=== PATIENT | female | born 1960 | race Caucasian/White ===

== ENCOUNTER 2018-02-05 06:42 | Inpatient (IN) | payer OTHER, SELFPAY ==
[2018-01-20 08:38] VITALS: BMI 40.4
[2018-01-22 08:10] VITALS: BMI 40.4
[2018-02-05] VITALS (19 sets, daily range): BP systolic 106–140; BP diastolic 57–78; PULSE 60–78; RESP 12–18; TEMP 36.3–37.1; O2SAT 93–99; BMI 40.4
--- NOTE | 2018-02-05 | DI.RAD.S_ITS ---
PROCEDURE: XR KNEE RT 1TO2V INDICATIONS: RIGHT TOTAL KNEE TECHNIQUE: 2 view(s) of the knee acquired. COMPARISON: None. FINDINGS: Bones: Patient is status post knee joint arthroplasty. Hardware components are in expected positions. Visualized bony structures are intact. Soft tissues: Overlying postoperative changes are noted. IMPRESSION: Status post knee arthroplasty as above. Dictated by: Shelby Mendieta M.D. on 02/05/2018 at 11:18 Approved by: Shelby Mendieta M.D. on 02/05/2018 at 11:18
[2018-02-05] MEDS: LACTATED RINGERS 1,000 ML 42 ML IV ×2 (07:45→09:47)
[2018-02-05] MEDS: VANCOMYCIN 1,000 MG/200 ML FROZ.PIGGY 200 MG IV (07:47)
[2018-02-05] MEDS: ACETAMINOPHEN 325 MG TABLET 975 MG PO ×3 (07:50→20:14)
[2018-02-05] MEDS: PREGABALIN 75 MG CAPSULE PO (07:51)
[2018-02-05] MEDS: MELOXICAM 7.5 MG TABLET 15 MG PO (08:01)
[2018-02-05] MEDS: MIDAZOLAM 2 MG/2 ML VIAL IV (08:15)
[2018-02-05] MEDS: fentaNYL 100 MCG/2 ML INJ IV (08:17)
--- NOTE | 2018-02-05 08:32 | PM.PREOP ---
Pre-operative Note Interval Note Pre-op Check: Yes History & Physical Reviewed by Physician and Yes Exam Performed Changes: No
--- NOTE | 2018-02-05 08:32 | PM.OP.1 ---
Operative Date/Time/Diagnoses Date of procedure: 02/05/18 Time of procedure: 08:56 Pre-op diagnosis: right knee OA Post-op diagnosis: same Procedure & Clinicians Procedure: right total knee Same procedure as scheduled: Yes Indications: The patient has had progressively worsening right knee pain with radiographic changes consistent with arthritis. Non-operative management has failed and the patient has requested total knee replacement. The risks, benefits and alternatives to surgery were discussed with the patient prior to proceeding. Risks discussed included, but were not limited to, failure to relieve pain, stiffness, infection, nerve damage, deep venous thrombosis, pulmonary embolism, stroke, coma, heart attack, permanent paralysis and , as well as the potential need for eventual revision of the prosthetic. Surgeon: Rhonda Arroyo [employer] Science Teacher: Christopher Russ Anesthesia Type: Spinal Operative Notes Findings: Severe right knee OA Closure Type: primary Specimen(s): none sent Implants & Drains: Arroyo and Nephew Jayden BCS2 femur 4, tibia 2, poly 12, patella 32x9 Applied: drain(s) Estimated Blood Loss (mL): 200 Blood products transfused: none Tourniquet time (min): 61 Procedure in detail: The patient was seen in the pre-operative area, where the patient identified the right knee as the operative site and this was marked with my initials. The patient received pre-operative antibiotics, and was taken to the operating room and placed on the operative table in the supine position. After satisfactory anesthesia, a multimedia author out was performed. The right leg was encircled with a tourniquet about the proximal thigh, and the leg was prepared from the toes to the tourniquet with ChloroPrep in the usual fashion and draped through sterile drapes. The leg was elevated and exsanguinated with Eschmark bandage and the tourniquet inflated to [250] mmHg pressure. The knee was approached through an approximately 18 cm incision centered over the patella and carried into the knee through a medial parapatellar arthrotomy. Portion of the medial and lateral meniscus was resected. Soft tissue was carefully mobilized around the patella the patella was measured with a caliper. Bone was resected from the patella and the patellar height was reconstituted with up an appropriate sized patellar component. A cover was then placed on the patella. A small amount of additional medial and lateral meniscus was resected. The visionare guide fit well to the distal femur. It looked like an appropriate distal femoral cut and the cut was made without difficulty. The rotation was assessed and the appropriate size femoral guide was placed on the distal femur and finishing cuts were made. There was no evidence of notching. The anterior, posterior and chamfer cuts were then made. The posterior osteophytes and soft tissues were then removed. The posterior capsule was injected with part of a mixture of 60 ml 0.25% Marcaine mixed with 20 ml Exparel for post operative pain control. The remainder of this mixture was injected into the capsule and subcutaneous tissues during cement curing. The tibia was prepared and the visionaire guide fit well to the distal tibia. The rotation was assessed. The patient was placed in extension residual medial and lateral meniscus as well as any residual bone was carefully resected. [No] additional tibia was resected. Hemostasis was achieved especially posteriorly. Additional local was injected into the posterior capsule. The extension gap was assessed and additional releases for gap balancing were performed as necessary. It was checked with the gap pneumatic tube fitter. The femoral component trial was placed and the notch was finished. Trial tibial and femoral components were then placed and the knee placed through a range of motion. Range of motion was [0-130], with good stability throughout the range. The trials were then removed, and the tibia was finished. The bone was prepared with pulsatile lavage, and dried with a sponge. Cement was applied and the final prosthetics placed. Excess cement was removed during and after cement curing. A brief Betadine soak was performed. After confirming there was no extruded cement posteriorly, the final tibial insert was placed. The knee was copiously irrigated and the tourniquet deflated. Hemostasis was obtained with the [Aquamantys system]. A drain was placed and brought out superolaterally. The capsule was closed with interrupted # 1 black braided suture. The subcutaneous layer was closed with barbed sutures, and the skin with a running 3-0 V-Lock suture and Surgical glue. An Aquacel Ag dressing was applied and the patient was taken to recovery having tolerated the procedure well. Complications: none Condition: stable Disposition: Acute Care Plan for aftercare: The patient will be maintained on a standard total knee replacement protocol with weight bearing as tolerated. The patient will receive Aspirin and sequential compression devices for DVT prophylaxis. The patient will be discharged home when safe for the home environment.
--- NOTE | 2018-02-05 08:32 | SUR.PREOP ---
Block start time 0815 . Monitoring initiated and maintained throughout procedure. Oxygen and medications given per anesthesiologist instructions. Patient remained stable throughout procedure, no adverse reactions noted. Block end time 825. PT REMAINED STABLE AND TALKING TO RN UNTIL TRANSPORTED IN THE OR. PT LEFT PRE OP AREA IN STABLE CONDITION.
--- NOTE | 2018-02-05 08:35 | P.OP_ITS ---
Operative Date/Time/Diagnoses Date of procedure: 02/05/18 Time of procedure: 08:56 Pre-op diagnosis: right knee OA Post-op diagnosis: same Procedure & Clinicians Procedure: right total knee Same procedure as scheduled: Yes Indications: The patient has had progressively worsening right knee pain with radiographic changes consistent with arthritis. Non-operative management has failed and the patient has requested total knee replacement. The risks, benefits and alternatives to surgery were discussed with the patient prior to proceeding. Risks discussed included, but were not limited to, failure to relieve pain, stiffness, infection, nerve damage, deep venous thrombosis, pulmonary embolism, stroke, coma, heart attack, permanent paralysis and , as well as the potential need for eventual revision of the prosthetic. Surgeon: Rhonda Arroyo Video Game Creator: Christopher Russ Anesthesia Type: Spinal Operative Notes Findings: Severe right knee OA Closure Type: primary Specimen(s): none sent Implants & Drains: Arroyo and Nephew Jayden BCS2 femur 4, tibia 2, poly 12, patella 32x9 Applied: drain(s) Estimated Blood Loss (mL): 200 Blood products transfused: none Tourniquet time (min): 61 Procedure in detail: The patient was seen in the pre-operative area, where the patient identified the right knee as the operative site and this was marked with my initials. The patient received pre-operative antibiotics, and was taken to the operating room and placed on the operative table in the supine position. After satisfactory anesthesia, a multimedia instructional designer out was performed. The right leg was encircled with a tourniquet about the proximal thigh, and the leg was prepared from the toes to the tourniquet with ChloroPrep in the usual fashion and draped through sterile drapes. The leg was elevated and exsanguinated with Eschmark bandage and the tourniquet inflated to [250] mmHg pressure. The knee was approached through an approximately 18 cm incision centered over the patella and carried into the knee through a medial parapatellar arthrotomy. Portion of the medial and lateral meniscus was resected. Soft tissue was carefully mobilized around the patella the patella was measured with a caliper. Bone was resected from the patella and the patellar height was reconstituted with up an appropriate sized patellar component. A cover was then placed on the patella. A small amount of additional medial and lateral meniscus was resected. The visionare guide fit well to the distal femur. It looked like an appropriate distal femoral cut and the cut was made without difficulty. The rotation was assessed and the appropriate size femoral guide was placed on the distal femur and finishing cuts were made. There was no evidence of notching. The anterior, posterior and chamfer cuts were then made. The posterior osteophytes and soft tissues were then removed. The posterior capsule was injected with part of a mixture of 60 ml 0.25% Marcaine mixed with 20 ml Exparel for post operative pain control. The remainder of this mixture was injected into the capsule and subcutaneous tissues during cement curing. The tibia was prepared and the visionaire guide fit well to the distal tibia. The rotation was assessed. The patient was placed in extension residual medial and lateral meniscus as well as any residual bone was carefully resected. [No] additional tibia was resected. Hemostasis was achieved especially posteriorly. Additional local was injected into the posterior capsule. The extension gap was assessed and additional releases for gap balancing were performed as necessary. It was checked with the gap graphite disk assembler. The femoral component trial was placed and the notch was finished. Trial tibial and femoral components were then placed and the knee placed through a range of motion. Range of motion was [0-130 ], with good stability throughout the range. The trials were then removed, and the tibia was finished. The bone was prepared with pulsatile lavage, and dried with a sponge. Cement was applied and the final prosthetics placed. Excess cement was removed during and after cement curing. A brief Betadine soak was performed. After confirming there was no extruded cement posteriorly, the final tibial insert was placed. The knee was copiously irrigated and the tourniquet deflated. Hemostasis was obtained with the [Aquamantys system]. A drain was placed and brought out superolaterally. The capsule was closed with interrupted # 1 black braided suture. The subcutaneous layer was closed with barbed sutures, and the skin with a running 3 -0 V-Lock suture and Surgical glue. An Aquacel Ag dressing was applied and the patient was taken to recovery having tolerated the procedure well. Complications: none Condition: stable Disposition: Acute Care Plan for aftercare: The patient will be maintained on a standard total knee replacement protocol with weight bearing as tolerated. The patient will receive Aspirin and sequential compression devices for DVT prophylaxis. The patient will be discharged home when safe for the home environment.
[2018-02-05] MEDS: CEFAZOLIN 2 GM/100 ML FROZ.PIGGY IV ×2 (08:47→16:41)
[2018-02-05] MEDS: TRANEXAMIC ACID 1,000 MG VIAL 1000 MG IV ×2 (09:06→10:16)
--- NOTE | 2018-02-05 09:20 | SUR.OPER ---
Supine on padded OR bed. Pillow under head, arms secured on padded armboards <90 degree abduction. Safety belt across torso. Non-operative leg secured with tape over blanket over lower leg. Operative leg secured in DeMayo/Alfredo positioner. Foam padded brace at thigh of operative leg.
[2018-02-05] MEDS: BUPIVACAINE 0.25% W/ EPI VIAL 60 ML INJ (09:32)
[2018-02-05] MEDS: BUPIVACAINE LIPOSOME 266 MG/20 ML VIAL INJ (09:33)
[2018-02-05] MEDS: POVIDONE-IODINE 15 ML, SODIUM CHLORIDE 0.9% 250 ML TOP (09:37)
[2018-02-05] MEDS: LACTATED RINGERS 1,000 ML 125 ML IV ×2 (12:29→21:44)
[2018-02-05] MEDS: ALBUTEROL 2.5 MG/3 ML NEB (ADULT) INH (14:15)
--- NOTE | 2018-02-05 14:47 | PT.IIE ---
Current Diagnoses Unilateral primary osteoarthritis, right knee (02/05/18) Presence of left artificial knee joint (02/05/18) Surgery Performed Operation Date: 02/05/18 08:45 Actual Procedures p Total Knee Arthroplasty(Right) - Rhonda Arroyo MD Surgical History (Last Updated 01/20/18 @ 09:28 by Janee Muniz, RN) H/O: (Acute) History of D&C (Acute) History of bladder surgery (Acute) History of total abdominal hysterectomy (Acute) Hx laparoscopic cholecystectomy (Acute) Status post left partial knee replacement (Acute) Medical History (Last Updated 01/22/18 @ 08:28 by Janee Muniz, RN) Allergic conjunctivitis, bilateral (Acute) Anemia (Acute) Asthma (Acute) Bruises easily (Acute) Chronic left hip pain (Acute) Constipation (Acute) Cough (Acute) Dizziness (Acute) Esophagitis (Acute) Familial hypercholesterolemia (Acute) Fatigue (Acute) GERD (gastroesophageal reflux disease) (Acute) Hearing loss (Acute) History of UTI (Acute) History of broken finger (Acute) History of depression (Acute) History of migraine (Acute) History of nephrolithiasis (Acute) History of urticaria (Acute) Hypercalciuria (Acute) Hypertension (Acute) Hypocitraturia (Acute) Hypothyroidism (Acute) Impaired fasting glucose (Acute) Intermittent lightheadedness (Acute) Moderate persistent asthma without complication (Acute) Obesity due to excess calories without serious comorbidity (Acute) Primary osteoarthritis of right knee (Acute) Physical Therapy Inpatient Evaluation/Re-Eval M1 PT/OT-IP Prior Functional Status Start: 02/05/18 15:50 Freq: NEEDED Status: Active Protocol: Document 02/05/18 14:47 MDD (Rec: 02/05/18 16:04 MDD [id number]) Medical Review Prior Functional Status Medical History Reviewed Yes Communication nml Mobility and Gait mod independent with FWW Activities of Daily Living and IADL's independent Social History Household Members spouse children Living Arrangements House Number of Floors (Floors) One Floor Number of Stairs To Enter/Railing? 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 She is off for the summer. Lives with her and two adult daughters. Her daughter Tracy is planning on being available at the house to assist during the next week or two. M2 PT-IP Current Condition Start: 02/05/18 15:50 Freq: NEEDED Status: Active Protocol: Document 02/05/18 14:47 MDD (Rec: 02/05/18 16:04 MDD [id number]) Physical Therapy Current Condition Current Condition Evaluation Date 02/05/18 Treatment Diagnosis s/p R TKA Onset Date 02/05/18 Weight Bearing Status Weight Bearing Status Weight Bear as Tolerated M3 PT-IP Subjective Start: 02/05/18 15:50 Freq: NEEDED Status: Active Protocol: Document 02/05/18 14:47 MDD (Rec: 02/05/18 16:04 MDD [id number]) Subjective Physical Therapy Visit Type Type Initial Evaluation Visit Start Time 13:43 Visit Stop Time 14:47 Total Visit Minutes 56 Notes Left room from 14:19 to 14:27 to allow patient to recieve nebulizer treatment. She had an asthma attack with ambulation into the restroom. Pt was able to make it to the commode. PT and PEA VINER MECHANIC were unable to find her inhaler, so respiratory therapy was called. Number of PROFESSOR IN FAMILY STUDIES Visits 0 Physical Therapy Visit Comments Patient Comments Reports she would like to go to the restroom if she can. Therapy Pain Assessment Pain When Pain Assessed At Rest Pain Present Pain Present Pain Reported Location Right Leg Intensity 4 Scale Used Numeric (1 - 10) Description Aching Pain Behaviors Facial Grimacing Moaning Pain Management Techniques Apply Cold M4 PT-IP Mobility and Gait Start: 02/05/18 15:50 Freq: NEEDED Status: Active Protocol: Document 02/05/18 14:47 MDD (Rec: 02/05/18 16:04 MDD [id number]) PT-Bed Mobility Assessment Supine to Sit Supine to Sit Minimal Assistance Head of Bed Elevated Sit to Supine Sit to Supine Minimal Assistance Head of Bed Elevated Scooting Scooting to Edge of Bed Independent PT-Transfer Assessment Sit to and From Stand Sit to and from Stand Contact Guard Assistance Equipment Transfer Assistive Device Gait Belt Front Wheeled Walker Transfers Transfer Destination Chair Bedside Commode Transfer Technique Stand Step Pivot Transfer Ability Level of Assist Contact Guard Assistance Gait Assessment Gait Gait Assistance Required: Contact Guard Assist Distance (Feet) (feet) 20 Assistive Devices Assistive Device Gait Belt Front Wheeled Walker Gait Deviations General Gait Pattern Antalgic Decreased Stride Length Flexed Trunk Step-to Gait Comments Gait Comments Very antalgic gait with heavy reliance on UE's. PT-Balance Assessment Sitting Balance and Reactions Static Sitting Balance Ability Normal Dynamic Sitting Balance Ability Normal Standing Balance and Reactions Static Standing Balance Ability Good Dynamic Standing Balance Ability Good M5 PT-IP Objective Assessments Start: 02/05/18 15:50 Freq: NEEDED Status: Active Protocol: Document 02/05/18 14:47 MDD (Rec: 02/05/18 16:04 [facility] [id number]) Orientation Orientation/Cognition Level of Alertness Alert Orientation Name Age Birthday Month Date Year Day of Week Place Situation Language Function Ability No Deficits Noted Safety Awareness Understands Safety Issues Memory Description No Deficits Noted Gross Range of Motion Lower Extremity ROM Assessment Within Functional Limits Strength Lower Extremity Strength Assessment Within Functional Limits Comments Strength Comments Able to actively dorsiflex and plantarflex R foot with resistence. Sensation Assessment Sensation Gross Sensation Right LE Impaired Light Touch Impaired Comments Sensation Comments Pt reports plantar surface of R foot feels tingly. Otherwise R LE light touch sensation intact. M6 PT-IP Treatment Start: 02/05/18 15:50 Freq: NEEDED Status: Active Protocol: Document 02/05/18 14:47 MDD (Rec: 02/05/18 16:04 [facility] [id number]) Physical Therapy Treatment Education Education Provided Precautions Weight Bearing Status Post-Op Packet Safety Other Treatments Other Treatment Performed Pt ambulated to bedside commode in bathroom, rested and ambulated to recliner (5 feet). Recieved her nebulizer treatment and ambulated back to bed. M7 PT-IP Assessment and Plan Start: 02/05/18 15:50 Freq: NEEDED Status: Active Protocol: Document 02/05/18 14:47 MDD (Rec: 02/05/18 16:04 [facility] [id number]) PT Summary Assessment and Plan Potential Rehabilitation Potential Good Status of Condition at Evaluation Evolving Summary Impairments Pain ROM Bed Mobility Transfers Gait Activity Tolerance Progress Towards Goals Progressing Toward Goals Slow Progress due to Medical Issues Assessment Summary Pt required min A to move R LE during bed mobility due to pain. Was able to stand with CGA and ambulate short distances. Due to acute asthma attack during gait, suggest she use bedside commode overnight. Will benefit from continued inpatient rehab to ensure safe d/c home. Goals Bed Mobility Goal Independent Transfer Goal Independent Gait Goal Independent Gait Distance 50 feet on level ground with FWW Other Goals Ascend/descend 2 steps with no railings with SBA. Days to Meet Goals 2 Frequency of Treatment Frequency Of Treatment Twice a Day Treatment Plan Physical Therapy Treatment Plan Bed Mobility Training Transfer Training Gait Training Therapeutic Exercise Post Op Education Other Recommendations and Next Treatment increase gait tolerance/ Focus distance, ensure pain meds provided prior to treatment. Recommendations To Nursing Amount of Assist Needed 1 Person Assist Discharge Recommendations PT Discharge Recommendations Home Home with Assistance
[2018-02-05] MEDS: DOCUSATE 100 MG CAPSULE PO (20:14)
[2018-02-05] MEDS: MOMETASONE FORMOTEROL 2 EACH INHALATION (20:14)
--- NOTE | 2018-02-05 23:41 | PC.NURSE ---
Addendum entered by Tierra Troy R.N. 02/06/18 06:04: Given Oxycodone earlier for complaint of 4/10 pain in right knee/thigh and was able to sleep well most of night. Now states pain is 3/10 and exacerbated by movement; still in right knee/thigh but also behind right knee. Medicated with Oxycodone and ice pack applied. No new drainage noted on dressing. Original Note: Patient is alert and oriented. Breath sounds diminished at bases but CTA with RA sat of 99%. HRR. Denies nausea. BT hypoactive and abdomen is soft; states she has passed some flatus. Up to bathroom with walker and 1 assist and voiding without difficulty; does report some chronic stress incontinence. Is able to turn self in bed. Aquacel dressing to right knee is intact with small spots sanguinous drainage outlined. Hemovac intact and compressed. States pain is minimal at 1/10; ice pack applied for comfort. Some swelling present in right knee. CMS is intact. Wearing bilateral calf SCD's. Reports several falls in past 2 weeks so is at high risk for falls so bed alarm is activated.
[2018-02-06] MEDS: CEFAZOLIN 2 GM/100 ML FROZ.PIGGY IV (01:28)
[2018-02-06] MEDS: OXYCODONE IR 5 MG TABLET PO ×3 (01:30→12:00)
[2018-02-06 05:53] LABS: Hematocrit 33.4 % (36-46); Hemoglobin 11.3 g/dL (12.0-16.0)
[2018-02-06 05:55] VITALS: BP 123/54; PULSE 77; RESP 16; TEMP 37.4; O2SAT 97
[2018-02-06] MEDS: LEVOTHYROXINE 50 MCG TABLET PO (05:58)
[2018-02-06] MEDS: PANTOPRAZOLE 20 MG TABLET PO (05:58)
--- NOTE | 2018-02-06 07:19 | PM.DS.1 ---
History of Present Illness Date Patient Seen: 02/06/18 Time Patient Seen: 07:13 Chief complaint: [id number] Narrative: Patient seen bedside status post right TKA postop day 1. Patient was ambulating with walker. She is doing, her pain is well controlled and she would like to go home today. Patient is [facility] and already has all of her discharge prescriptions. Discharge Providers Date of admission: 02/05/18 06:42 Primary care physician: Kris Ho MD Consults: 02/05/18 11:58 Consult to Discharge Planning Routine Comment: Consult to Physical Therapy Evaluate & Treat Comment: Physician Instructions: postop TKA protocol Consult to Respiratory Therapy Evaluate & Treat Comment: Physician Instructions: Evaluate and treat Discharge provider: Katia Nelson PA-C Summary Discharge Diagnosis: right knee osteoarthritis Hospital Course: Patient admitted status post right TKA. Patient tolerated procedure well no major complications. The patient was taken to the acute care where she received some therapy physical therapy recommended to be discharged home with outpatient PT. Patient was ready for discharge on 02/06/2018. Condition of patient at discharge improved code status full. Status at Discharge Cognitive/behavioral status at discharge: A&O x4 Functional status at discharge: uses cane/walker Overall status at discharge: patient is progressing back to baseline Time Spent with Patient Less than 30 minutes Exam Vital Signs (past 8 hours): - 02/05/18 23:39 02/06/18 05:55 Temperature 98.0 F 99.3 F Pulse Rate 66 77 Respiratory Rate 16 16 Blood Pressure 139/71 H 123/54 H Pulse Oximetry 98 97 Fraction of Inspired Oxygen 21 Oxygen Delivery Method Room Air Oxygen Flow Rate 0 Narrative Exam Narrative: Patient is well-developed well-nourished no acute distress. Patient alert oriented x3. Examination are postop dressing is clean dry and intact with minimal drainage. There is minimal drainage in her Hemovac drain. She has a soft and compressible calf full range of motion at the ankle. Objective Labs Result Diagrams: 02/06/18 05:31 Labs: Laboratory Results - last 24 hr 02/06/18 05:31 Hgb 11.3 L Hct 33.4 L Discharge Plan Discharge Plan Patient Disposition: Home, Self-Care Discharge Med Rec/Prescriptions Prescriptions: New acetaminophen 325 mg Tablet 1,000 mg PO TID Qty: 0 RF: 0 aspirin 81 mg Tablet,Delayed Release (Dr/Ec) 81 mg PO BID Qty: 0 RF: 0 docusate sodium 100 mg Capsule 100 mg PO BID Qty: 0 RF: 0 oxycodone 5 mg Tablet 5 mg PO Q4H PRN (Reason: Pain, Moderate (4-6)) Qty: 0 RF: 0 Continue albuterol sulfate 2.5 mg /3 mL (0.083 %) Solution For Nebulization 2.5 mg INHALATION QID PRN (Reason: wheezing or shortness of breat) RF: 0 ketotifen fumarate 0.025 % (0.035 %) Drops 1 drp EYE-BOTH Q24H PRN (Reason: Allergic Symptoms) RF: 0 chlorthalidone 25 mg Tablet 25 mg PO DAILY RF: 0 potassium citrate 10 mEq (1,080 mg) Tablet Extended Release 10 meq PO TID RF: 0 levothyroxine 50 mcg Tablet 50 mcg PO DAILY RF: 0 ferrous sulfate 325 mg (65 mg iron) Tablet 325 mg PO EVERY OTHER DAY RF: 0 lisinopril 10 mg Tablet 10 mg PO DAILY RF: 0 omeprazole 20 mg Capsule,Delayed Release(Dr/Ec) 20 mg PO DAILY RF: 0 diltiazem HCl 180 mg Capsule,Ext.Rel 24h Degradable 180 mg PO DAILY RF: 0 rosuvastatin 10 mg Tablet 10 mg PO DAILY RF: 0 mometasone-formoterol [Dulera] 200-5 mcg/actuation Hfa Aerosol Inhaler 2 puff INHALATION BID RF: 0 krill oil 500 mg Capsule 1 cap PO DAILY RF: 0 fkedqoox-bml-XO-herbal no.245 2 tab PO DAILY RF: 0 ascorbic acid (vitamin C) [Vitamin C] 1,000 mg Tablet 1,000 mg PO EVERY OTHER DAY RF: 0 Discontinued ibuprofen 200 mg Tablet 600 mg PO DAILY PRN (Reason: pain) RF: 0 Provider Discharge Instructions Diet: Diet as Tolerated Activity: WBAT, use walker to ambulate until progressed by PT Cold/Heat Therapy: Ice for 20 minutes at least every hour while awake Wound Care Report to your healthcare provider any signs of infection, such as:: chills, fever, night sweats, increased pain and unusual drainage Dressing: Keep aquacel dressing on until second post-op visit Visit Report/Discharge Packet Instructions: DI for Knee Replacement Discharge Data Primary Care Provider: Kris Ho Attending Provider: Rhonda Arroyo Admit Date/Time: 02/05/18 06:42 Quality VTE Deep Vein Thrombosis/Pulmonary Embolism Present on Admission: No
[2018-02-06] MEDS: MOMETASONE FORMOTEROL 2 EACH INHALATION (07:44)
[2018-02-06 07:45] VITALS: PULSE 68; RESP 16; O2SAT 95
[2018-02-06] MEDS: ASCORBIC ACID 500 MG TABLET 1000 MG PO (08:01)
[2018-02-06] MEDS: ACETAMINOPHEN 325 MG TABLET 975 MG PO (08:01)
[2018-02-06 08:02] VITALS: BP 126/59
[2018-02-06] MEDS: ASPIRIN EC 81 MG TABLET PO (08:02)
[2018-02-06] MEDS: dilTIAZem CD 180 MG CAP PO (08:02)
[2018-02-06] MEDS: LISINOPRIL 10 MG TABLET PO (08:02)
[2018-02-06] MEDS: DOCUSATE 100 MG CAPSULE PO (08:02)
[2018-02-06] MEDS: FERROUS SULFATE 325 MG TABLET PO (08:02)
[2018-02-06] MEDS: CHLORTHALIDONE 25 MG TABLET PO (08:02)
[2018-02-06] MEDS: ROSUVASTATIN 10 MG TABLET PO (08:03)
[2018-02-06 08:44] VITALS: BP 126/73; PULSE 71; RESP 16; TEMP 36.6; O2SAT 96
--- NOTE | 2018-02-06 09:30 | PT.IPTN ---
Current Diagnoses Unilateral primary osteoarthritis, right knee (02/05/18) Presence of left artificial knee joint (02/05/18) Surgery Performed Operation Date: 02/05/18 08:45 Actual Procedures p Total Knee Arthroplasty(Right) - Rhonda Arroyo MD Physical Therapy Treatment Note M2 PT-IP Current Condition Start: 02/05/18 15:50 Freq: NEEDED Status: Active Protocol: Document 02/05/18 14:47 MDD (Rec: 02/05/18 16:04 MDD [id number]) Physical Therapy Current Condition Current Condition Evaluation Date 02/05/18 Treatment Diagnosis s/p R TKA Onset Date 02/05/18 Weight Bearing Status Weight Bearing Status Weight Bear as Tolerated M3 PT-IP Subjective Start: 02/05/18 15:50 Freq: NEEDED Status: Active Protocol: Document 02/06/18 09:30 MDD (Rec: 02/06/18 11:11 MDD [id number]) Subjective Physical Therapy Visit Type Type Treatment Note Visit Start Time 08:55 Visit Stop Time 09:34 Total Visit Minutes 39 Number of SENIOR ACCOUNTANT Visits 0 Physical Therapy Visit Comments Patient Comments Feels ready to go home today. Pain is under better control today. Therapy Pain Assessment Pain When Pain Assessed At Rest Pain Present Pain Present Pain Reported Location Right Leg Intensity 3 Scale Used Numeric (1 - 10) Description Aching M4 PT-IP Mobility and Gait Start: 02/05/18 15:50 Freq: NEEDED Status: Active Protocol: Document 02/05/18 14:47 MDD (Rec: 02/05/18 16:04 MDD [id number]) PT-Bed Mobility Assessment Supine to Sit Supine to Sit Minimal Assistance Head of Bed Elevated Sit to Supine Sit to Supine Minimal Assistance Head of Bed Elevated Scooting Scooting to Edge of Bed Independent PT-Transfer Assessment Sit to and From Stand Sit to and from Stand Contact Guard Assistance Equipment Transfer Assistive Device Gait Belt Front Wheeled Walker Transfers Transfer Destination Chair Bedside Commode Transfer Technique Stand Step Pivot Transfer Ability Level of Assist Contact Guard Assistance Gait Assessment Gait Gait Assistance Required: Contact Guard Assist Distance (Feet) (feet) 20 Assistive Devices Assistive Device Gait Belt Front Wheeled Walker Gait Deviations General Gait Pattern Antalgic Decreased Stride Length Flexed Trunk Step-to Gait Comments Gait Comments Very antalgic gait with heavy reliance on UE's. PT-Balance Assessment Sitting Balance and Reactions Static Sitting Balance Ability Normal Dynamic Sitting Balance Ability Normal Standing Balance and Reactions Static Standing Balance Ability Good Dynamic Standing Balance Ability Good M5 PT-IP Objective Assessments Start: 02/05/18 15:50 Freq: NEEDED Status: Active Protocol: Document 02/05/18 14:47 MDD (Rec: 02/05/18 16:04 [facility] [id number]) Orientation Orientation/Cognition Level of Alertness Alert Orientation Name Age Birthday Month Date Year Day of Week Place Situation Language Function Ability No Deficits Noted Safety Awareness Understands Safety Issues Memory Description No Deficits Noted Gross Range of Motion Lower Extremity ROM Assessment Within Functional Limits Strength Lower Extremity Strength Assessment Within Functional Limits Comments Strength Comments Able to actively dorsiflex and plantarflex R foot with resistence. Sensation Assessment Sensation Gross Sensation Right LE Impaired Light Touch Impaired Comments Sensation Comments Pt reports plantar surface of R foot feels tingly. Otherwise R LE light touch sensation intact. M6 PT-IP Treatment Start: 02/05/18 15:50 Freq: NEEDED Status: Active Protocol: Document 02/06/18 09:30 MDD (Rec: 02/06/18 11:11 [facility] [id number]) Physical Therapy Treatment Exercises Exercises Quad Sets Heel Slides Straight Leg Raises Education Education Provided Precautions Safety Other Treatments Other Treatment Performed Bed mobility training: hooking L LE under R LE for bed mobility. Performed 3 x sit < > supine. Ambulated 57' with FWW with antalgic gait favoring R LE. Performed 2 threshold steps (ascend/ descend) using FWW with CGA. M7 PT-IP Assessment and Plan Start: 02/05/18 15:50 Freq: NEEDED Status: Active Protocol: Document 02/06/18 09:30 MDD (Rec: 02/06/18 11:11 [facility] [id number]) PT Summary Assessment and Plan Potential Rehabilitation Potential Excellent Status of Condition at Evaluation Stable Summary Impairments Pain Progress Towards Goals Safe For Discharge Goals Met Assessment Summary Pt did suffer an asthma attack after her first threshold step, but was able to sit in w /c and use her inhaler. Was able to perform the second step without any issues. Demonstrates improved bed mobility with hooking her L LE underneath R ankle. Safe to d/c when medically appropriate . Goals Bed Mobility Goal Independent Transfer Goal Independent Gait Goal Independent Gait Distance 50 feet on level ground with FWW Other Goals Ascend/descend 2 steps with no railings with SBA. Days to Meet Goals 2 Frequency of Treatment Frequency Of Treatment Twice a Day Treatment Plan Physical Therapy Treatment Plan Bed Mobility Training Transfer Training Gait Training Therapeutic Exercise Post Op Education Other Recommendations and Next Treatment increase gait tolerance/ Focus distance, ensure pain meds provided prior to treatment. Recommendations To Nursing Amount of Assist Needed Standby Assistance Discharge Recommendations PT Discharge Recommendations Home Home with Assistance
--- NOTE | 2018-02-06 14:36 | PC.NURSE ---
Pt out via w/c by [facility] with Spouse and all belongings. Reviewed d/c information. Pt denies further questions.
--- NOTE | 2018-02-06 15:12 | CM.IDA ---
DCP Assessment Note: Home today as expected. No barriers to safe DC home identified by staff. Caesar Lopez. [facility] Discharge Planning/Care Management CM Discharge Assessment Start: 02/06/18 08:10 Freq: Status: Discharge Protocol: Document 02/06/18 08:10 [facility] (Rec: 02/06/18 08:14 [facility] [id number]) Discharge Planning Assessment Assigned Box Worker [facility] History Provided By Patient Medical Record Has Patient been admitted in last 30 No days? Is this patient on Medicare? No Prior Living Arrangements House Household Members spouse children Type of transporation used prior to Drives own vehicle admit Comment Lives with spouse and two adult children. Independent with ADL's Yes: Fulltime life sciences teacher, off for the summer. Is patient alert and oriented? Yes Caregiver for Another No Referrals Initiated None needed Discharge Plan Home Transportation Arrangement Family Additional Comment Pt plans to return home w/ assist from adult dtrs and spouse. Pt relays on inhaler so likely will need resting breaks w/activity per notes. Review Status In Process Next Review Type Discharge Review
== END 2018-02-06 14:37 | disposition home or self-care (01) | DRG 470 ==
PROVIDERS: Admitting Provider Orthopaedic Surgery; PCP Family Medicine; Visit Provider Orthopaedic Surgery
PROC: 0SRC0JZ Replacement of Right Knee Joint with Synthetic Substitute, Open Approach (ICD-10-PCS; CPT 27447; principal; 2018-02-05 08:45)
DX: M17.11 Unilateral primary osteoarthritis, right knee (principal); Z68.41 Body mass index [BMI] 40.0-44.9, adult; Z96.652 Presence of left artificial knee joint; J45.909 Unspecified asthma, uncomplicated; D64.9 Anemia, unspecified; E66.01 Morbid (severe) obesity due to excess calories; E03.9 Hypothyroidism, unspecified
CPT/HCPCS: 36415; 73560; 85014; 85018; 94640; 94760; 97110; 97116; 97161; 97530; C1776; C9290; J0690; J2250; J2704; J3010; J3370; J7613